=== PATIENT | female | born 1990 | race African-American/Black ===

== ENCOUNTER 2018-09-20 14:50 | Emergency (ER) | payer SELFPAY ==
[~2018-09-20] VITALS: Ht 160 cm; Wt 52.2 kg
[~2018-09-20 14:50] MED LIST: COLACE100 MG RECTAL; CYCLOBENZAPRINE10 MG ORAL; FLEET ENEMA EX230 ML RC; IBUPROFEN400 MG ORAL; IBUPROFEN600 MG ORAL; MAGNESIUM CITR100 MG PO; NKM; PENICILLIN V P500 MG ORAL; ROBAXIN500 MG PO; SUPPOSITORY1 EACH RC; TRAMADOL HCL50 MG ORAL; VICODIN 5-5001 EACH PO; ZOFRAN ODT4 MG ORAL; ZOFRAN4 MG ORAL
--- NOTE | 2018-09-20 15:00 | NUR ---
ED Nurse Note: pt walked in to ED with twin daughter due to vomiting and nausea. per pt, her baby started vomiting during night. she smell gas at home. pt felt sick this afternoon. denies SOB. AAO x4. respirations even and non-labored noted. will wait for the further order.
[2018-09-20 15:05] VITALS: BP 110/80
--- NOTE | 2018-09-20 16:17 | Emergency Room Report ---
History of Present Illness General Chief Complaint: Vomiting Source: Patient Present Illness HPI 28-year-old female presents to the emergency department complaining of multiple episodes of vomiting along with diarrhea. She denies pain. Patient denies blood in the vomit or stool she reports acute onset this morning she states that her to daughters have had similar symptoms as well which started yesterday. Patient also notes that yesterday the family was exposed to gas from the stove being left on for several hours at their home. Mom reports increased lethargy but states that it is due to being up all night taking care of the 2 daughters. Reports persistent nausea and decreased appetite. Denies increased tearing, rhinorrhea, excessive saliva or sweating. Denies rashes. Denies suspicion of and states that she had her tubes tied. She also states that she is currently on her menstrual cycle. Allergies: Coded Allergies: Cultivated Oat Pollen (Verified Allergy, Unknown, 12/29/14) Fruit Juice (Verified Allergy, Unknown, 12/29/14) Uncoded Allergies: FRUIT (Allergy, Unknown, 12/29/14) POLLEN (Allergy, Unknown, 12/29/14) Patient History Past Medical History: see triage record Past Surgical History: none Pertinent Family History: none Last Menstrual Period: 09/18/18 Now: No Reviewed Nursing Documentation: PMH: Agreed; PSxH: Agreed Nursing Documentation-PMH Past Medical History: No Stated History Review of Systems All Other Systems: negative except mentioned in HPI Physical Exam Vital Signs Date Time Temp Pulse Resp B/P (MAP) Pulse Ox O2 Delivery O2 Flow Rate FiO2 09/20/18 14:55 98.2 92 18 110/80 (90) 96 Room Air Sp02 EP Interpretation: reviewed, normal General Appearance: alert, GCS 15, non-toxic, mild distress - vomiting Head: normocephalic, atraumatic Eyes: bilateral eye normal inspection, bilateral eye PERRL ENT: hearing grossly normal, normal voice Neck: full range of motion Respiratory: chest non-tender, lungs clear, normal breath sounds, no wheezing, speaking full sentences Cardiovascular #1: regular rate, rhythm Gastrointestinal: normal bowel sounds, soft, non-distended, no guarding, tenderness - epigastric ttp Genitourinary: normal inspection, no CVA tenderness Musculoskeletal: gait/station normal, normal range of motion, non-tender Neurologic: alert, oriented x3, responsive, motor strength/tone normal, sensory intact, speech normal, grossly normal Psychiatric: judgement/insight normal Skin: normal color, no rash, warm/dry, well hydrated Lymphatic: no adenopathy Medical Decision Making PA Attestation Dr. Rodrigues is my supervising Physician whom patient management has been discussed with. Diagnostic Impression: Primary Impression: Nausea vomiting and diarrhea ER Course 28-year-old female presents to the emergency department complaining of multiple episodes of vomiting along with diarrhea. She denies pain. Patient denies blood in the vomit or stool she reports acute onset this morning she states that her to daughters have had similar symptoms as well which started yesterday. Patient also notes that yesterday the family was exposed to gas from the stove being left on for several hours at their home. Mom reports increased lethargy but states that it is due to being up all night taking care of the 2 daughters. Reports persistent nausea and decreased appetite. Denies increased tearing, rhinorrhea, excessive saliva or sweating. Denies rashes. Denies suspicion of and states that she had her tubes tied. She also states that she is currently on her menstrual cycle. Ddx considered but are not limited to GE, colitis, acute appy, SBO, Cyclical Vomiting secondary to THC, * , gas exposure. Vital signs: pt. is afebrile H&PE are most consistent with GE most likely viral in etiology, no evidence to suggest acute abdomen on physical exam. ORDERS: -ABG w. carboxyhemoglobin: WNL -Urine Hcg: pt. declines states her tubes are tied. ED INTERVENTIONS: -1000 NS iv hydration, -Zofran 4mg --Pt. reports complete resolution of her symptoms with ED interventions. states she feels much better and requests to have IV d/c prematurely and d/c to home. -I do not identify an emergent condition at this time. With current presentation , pt. is stable for close outpatient follow up and conservative treatment. D/ w pt. to return promptly to ED with worsening or new symptoms.- Pt. verbalizes' understanding and agreement with proposed treatment plan.proposed treatment plan. DISCHARGE: At this time pt. is stable for d/c to home. Will provide printed patient care instructions, and any necessary prescriptions. Care plan and follow up instructions have been discussed with the patient prior to discharge. Labs Test 09/20/18 16:20 Arterial Blood pH 7.408 (7.350-7.450) Arterial Blood Partial Pressure CO2 38.9 mmHg (35.0-45.0) Arterial Blood Partial Pressure O2 83.6 mmHg (75.0-100.0) Arterial Blood HCO3 24.0 mmol/L (22.0-26.0) Arterial Blood Oxygen Saturation 95.7 % (95-100) Arterial Blood Base Excess -0.5 (-2-2) [place] Test Positive Last Vital Signs Date Time Temp Pulse Resp B/P (MAP) Pulse Ox O2 Delivery O2 Flow Rate FiO2 09/20/18 15:05 98.2 92 18 110/80 96 Room Air Status: improved Disposition: HOME, SELF-CARE Condition: Stable Scripts Dicyclomine Hcl* (DICYCLOMINE HCL*) 10 Mg Capsule 10 MG ORAL TID for 2 Days, #6 CAP Prov: Sharri Espino 09/20/18 Ondansetron Odt* (ZOFRAN ODT*) 4 Mg Tab.rapdis 4 MG BC EVERY 8 HOURS PRN for Nausea & Vomiting, #10 TAB 0 Refills Prov: Sharri Espino 09/20/18 Patient Instructions: Nausea and Vomiting, Adult Additional Instructions: Take medications as directed. Follow up with a Primary Care Provider in 3-5 days, even if your symptoms have resolved. --Please review list of primary care clinics, if you do not already have a primary care provider Return sooner to ED if new symptoms occur, or current symptoms become worse. - Please note that this Emergency Department Report was dictated using [employer] project manager technology software, occasionally this can lead to erroneous entry secondary to interpretation by the dictation equipment. Sharri Espino Sep 20, 2018 16:17
[2018-09-20] MEDS ORDERED: DICYCLOMINE HCL10 MG ORAL (17:17)
[2018-09-20] MEDS ORDERED: ONDANSETRON ODT4 MG BC (17:17)
[2018-09-20 17:50] VITALS: BP 121/74
--- NOTE | 2018-09-20 17:50 | NUR ---
ER DISCHARGE NOTE: pt is ok to be discharge without urine test and fluid done per RAND Espino. Patient is cleared to be discharged per ERMD, pt is aox4, on room air, with stable vital signs. pt was given dc and prescription instructions, pt was able to verbalize understanding, pt id band and iv site removed without complications. pt is able to ambulate with steady gait. pt took all belongings.
== END 2018-09-20 17:50 | disposition home or self-care (01) ==
LOC: EMR 17:20
DX: R11.2 Nausea with vomiting, unspecified (principal); R19.7 Diarrhea, unspecified; Z91.018 Allergy to other foods
CPT/HCPCS: 36600; 82803; 96361; 96374; 99284; J2405

== ENCOUNTER 2019-02-27 12:37 | Emergency (ER) | payer MEDICAID ==
[~2019-02-27] VITALS: Ht 160 cm; Wt 52.6 kg
[~2019-02-27 12:37] MED LIST changes: +DICYCLOMINE HCL10 MG ORAL; +IBU800 MG PO; +ONDANSETRON ODT4 MG BC; +ROBAXIN-500MG ORAL
[2019-02-27 12:57] VITALS: BP 120/75
--- NOTE | 2019-02-27 13:05 | NUR ---
ED Nurse Note: [place]e and frequent urination for 1month, patient reports back and lower bilateral thigh pain as well. patient reports she had unprotected sex recently, also reports slight vaginal discharge as well. patient reports she is feeling very tired lately. patient provided with hospital gown.
--- NOTE | 2019-02-27 13:43 | NUR ---
ED Nurse Note: UA sent to lab
[2019-02-27 14:00] LABS: APPEARANCE,URINE SLIGHTLY CLOUDY; BILIRUBIN, URINE NEGATIVE (NEGATIVE); COLOR,URINE PALE YELLOW; GLUCOSE, URINE (UA) NEGATIVE (NEGATIVE); KETONES,URINE NEGATIVE (NEGATIVE); LEUKOCYTE ESTERASE ,URINE NEGATIVE (NEGATIVE); NITRITE,URINE NEGATIVE (NEGATIVE); PH,URINE 5 (4.5-8.0); PROTEIN,URINE NEGATIVE (NEGATIVE); UROBILINOGEN,URINE NORMAL MG/DL (0.0-1.0)
--- NOTE | 2019-02-27 14:35 | Emergency Room Report ---
History of Present Illness General Chief Complaint: Female Urogenital Problems Source: Patient Present Illness HPI 28 YO Female presents to the ED c/o 10 out of 10 severity urinary frequency with body aches she states progressive x1 month she also is reporting new onset vaginal discharge x5 days with malodor and low back pain. Patient denies recent antibiotic use she reports recent unprotected intercourse however she states she is not concerned for STIs. Denies pain with intercourse. Patient denies she denies nausea, vomiting, abdominal pain or tenderness, hematuria or dysuria. Patient denies constipation or diarrhea. Patient denies external vaginal lesions/rashes. Patient denies swollen tender lymph nodes or joint pains. Patient states she believes she may have a UTI otherwise she has a history of bacterial vaginosis regularly in the past. Allergies: Coded Allergies: Cultivated Oat Pollen (Verified Allergy, Unknown, 12/29/14) Fruit Juice (Verified Allergy, Unknown, 12/29/14) Uncoded Allergies: FRUIT (Allergy, Unknown, 12/29/14) POLLEN (Allergy, Unknown, 12/29/14) Patient History Past Medical History: see triage record Past Surgical History: none Pertinent Family History: none Last Menstrual Period: 11-10 Now: No Immunizations: UTD Reviewed Nursing Documentation: PMH: Agreed; PSxH: Agreed Nursing Documentation-PMH Past Medical History: No Stated History Review of Systems All Other Systems: negative except mentioned in HPI Physical Exam Vital Signs Date Time Temp Pulse Resp B/P (MAP) Pulse Ox O2 Delivery O2 Flow Rate FiO2 02/27/19 12:57 98.8 97 19 120/75 98 Room Air Medical Decision Making PA Attestation Dr. Rodrigues is my supervising Physician whom patient management has been discussed with. Diagnostic Impression: Primary Impression: Vaginitis Qualified Codes: N76.0 - Acute vaginitis Additional Impression: Urinary frequency ER Course 28 YO Female presents to the ED c/o 10 out of 10 severity urinary frequency with body aches she states progressive x1 month she also is reporting new onset vaginal discharge x5 days with malodor and low back pain. Patient denies recent antibiotic use she reports recent unprotected intercourse however she states she is not concerned for STIs. Denies pain with intercourse. Patient denies she denies nausea, vomiting, abdominal pain or tenderness, hematuria or dysuria. Patient denies constipation or diarrhea. Patient denies external vaginal lesions/rashes. Patient denies swollen tender lymph nodes or joint pains. Patient states she believes she may have a UTI otherwise she has a history of bacterial vaginosis regularly in the past. Ddx considered but are not limited to UTi , Pyelo, STI, Stone, Cystitis, vaginal laceration, vaginitis. Vital signs: are WNL, pt. is afebrile H& PE are most consistent with: Vaginitis and possible UTI ORDERS: - UA labs are attached-most indicative of contamination: presence of equal amounts of bacteria and squamous cells, no elevation in inflammatory markers, nitrite negative. ED INTERVENTIONS: -Pyridium PO DISCHARGE: At this time pt. is stable for d/c to home. Will provide printed patient care instructions, and any necessary prescriptions. Care plan and follow up instructions have been discussed with the patient prior to discharge. discussed with the patient prior to discharge. Labs Test 02/27/19 13:35 Urine Color Pale yellow Urine Appearance Slightly cloudy Urine pH 5 (4.5-8.0) Urine Specific [place] 1.015 (1.005-1.035) Urine Protein Negative (NEGATIVE) Urine Glucose (UA) Negative (NEGATIVE) Urine Ketones Negative (NEGATIVE) Urine Blood Negative (NEGATIVE) Urine Nitrite Negative (NEGATIVE) Urine Bilirubin Negative (NEGATIVE) Urine Urobilinogen Normal MG/DL (0.0-1.0) Urine Leukocyte Esterase Negative (NEGATIVE) Urine RBC 0 /HPF (0 - 2) Urine WBC 0 /HPF (0 - 2) Urine Squamous Epithelial Cells Few /LPF (NONE/OCC) Urine Bacteria Few /HPF (NONE) Last Vital Signs Date Time Temp Pulse Resp B/P (MAP) Pulse Ox O2 Delivery O2 Flow Rate FiO2 02/27/19 12:57 98.8 97 19 120/75 (90) 98 Room Air Disposition: HOME, SELF-CARE Condition: Stable Scripts Phenazopyridine Hcl* (PYRIDIUM*) 100 Mg Tablet 100 MG ORAL THREE TIMES A DAY, #9 TAB Prov: Sharri Espino 02/27/19 Fluconazole (FLUCONAZOLE) 100 Mg Tablet 100 MG ORAL DAILY, #3 TAB 0 Refills Prov: Sharri Espino 02/27/19 Metronidazole* (FLAGYL*) 500 Mg Tablet 500 MG ORAL BID for 7 Days, #14 TAB Prov: Sharri Espino 02/27/19 Referrals: NON PHYSICIAN (PCP) Patient Instructions: Vaginitis Additional Instructions: Take medications as directed. ! Do not drink alcohol while taking Flagyl/Metronidazole as this will cause a skin reaction. Follow up with a Primary Care Provider in 3-5 days, even if your symptoms have resolved. --Please review list of primary care clinics, if you do not already have a primary care provider Return sooner to ED if new symptoms occur, or current symptoms become worse. - Please note that this Emergency Department Report was dictated using FrienditePluspassenger booking clerk technology software, occasionally this can lead to erroneous entry secondary to interpretation by the dictation equipment. Sharri Espino Feb 27, 2019 14:35
[2019-02-27] MEDS ORDERED: Phenazopyridine 200mg tab ORAL ONE (14:45)
[2019-02-27] MEDS ORDERED: FLUCONAZOLE100 MG ORAL (14:45)
[2019-02-27] MEDS ORDERED: METRONIDAZOLE500 MG ORAL (14:45)
[2019-02-27] MEDS ORDERED: PHENAZOPYRIDIN100 MG ORAL (14:45)
[2019-02-27 14:50] VITALS: BP 120/75
--- NOTE | 2019-02-27 14:50 | NUR ---
ER DISCHARGE NOTE: Patient is cleared to be discharged per SOPHIA MCCORMACK , pt is aox4, on room air, with stable vital signs. pt was given dc and prescription instructions, pt was able to verbalize understanding, pt id band removed without complications. pt is able to ambulate with steady gait. pt took all belongings.
== END 2019-02-27 14:50 | disposition home or self-care (01) ==
LOC: EMR 13:40
DX: N76.0 Acute vaginitis (principal); R35.0 Frequency of micturition; Z91.018 Allergy to other foods
CPT/HCPCS: 81003; Z7502; 99283

== ENCOUNTER 2019-05-16 12:19 | Emergency (ER) | payer MEDICAID ==
[~2019-05-16] VITALS: Ht 160 cm; Wt 53.5 kg
[~2019-05-16 12:19] MED LIST changes: +FLUCONAZOLE100 MG ORAL; +METRONIDAZOLE500 MG ORAL; +PHENAZOPYRIDIN100 MG ORAL
[2019-05-16 12:53] VITALS: BP 107/71
--- NOTE | 2019-05-16 14:00 | NUR ---
ED Nurse Note:pt. came with c/o head injury at work ,CT was done, pain meds given
--- NOTE | 2019-05-16 14:11 | Diagnostic Imaging Report ---
Indication: Confusion and nausea. Status post head injury Technique: Contiguous 5 mm thick transaxial imaging of the head obtained in a Siemens Sensation [address] scanner. Soft tissue and bone windows generated. Automatic Exposure Control was utilized. Total Dose length Product (DLP): 1426.[address] Dose Index Volume (CTDIvol): 62.7 mGy Comparison: none Findings: The size and configuration of the cortical sulci, basal cisterns, and ventricles are within normal limits for age. There is no mass effect, midline shift, or edema identified. There is no evidence of acute hemorrhage or abnormal intra-axial or extra-axial fluid collections. The bones and soft tissues are unremarkable. Impression: No mass effect, edema or acute bleed. The CT scanner at [facility] is accredited by the [employer] [place] [employer] and the scans are performed using dose optimization techniques as appropriate to a performed exam including Automatic Exposure control.
--- NOTE | 2019-05-16 14:23 | Emergency Room Report ---
History of Present Illness General Chief Complaint: Head Injury Source: Patient Present Illness HPI 28 YO female presents to the ED c/o confusion, increased response times and increased fatigue/sleepiness with nausea and decrease in appetite x 2 days. S/ P alleged head injury. Pt. has forehead lac with [address] that is currently healing. Pt. reports car trunk door hit her head. Pt. denies LOC. She denies taking blood thinning medications. She denies vomiting. She reports having CARO's now that are 9/10 in severity with notable photophobia. She denies visual changes, loss of vision, loss of hearing or changes in her hearing. She denies tinnitus. She denies neck pain. She denies additional head traumas. She denies amnesia. or memory loss. Pt. reports she feels sluggish and " slow mentally". No aggravating or relieving factors at this time. She has taken Tylenol twice since onset of symptoms. She denies and reports that her tubes are tied. Allergies: Coded Allergies: Cultivated Oat Pollen (Verified Allergy, Unknown, 12/29/14) Fruit Juice (Verified Allergy, Unknown, 12/29/14) Uncoded Allergies: FRUIT (Allergy, Unknown, 12/29/14) POLLEN (Allergy, Unknown, 12/29/14) Patient History Past Medical History: see triage record Past Surgical History: none Pertinent Family History: none Last Menstrual Period: 04/25/19 Now: No Reviewed Nursing Documentation: PMH: Agreed; PSxH: Agreed Nursing Documentation-PMH Past Medical History: No Stated History Review of Systems All Other Systems: negative except mentioned in HPI Physical Exam Vital Signs Date Time Temp Pulse Resp B/P (MAP) Pulse Ox O2 Delivery O2 Flow Rate FiO2 05/16/19 12:28 98.1 75 16 107/71 (83) 99 Room Air Sp02 EP Interpretation: reviewed, normal General Appearance: no apparent distress, alert, GCS 15, non-toxic Head: normocephalic, atraumatic Eyes: bilateral eye normal inspection, bilateral eye PERRL, bilateral eye photophobia ENT: hearing grossly normal, normal voice Neck: full range of motion, no meningismus, no bony tend Respiratory: chest non-tender, lungs clear, normal breath sounds, speaking full sentences Cardiovascular #1: regular rate, rhythm Gastrointestinal: normal bowel sounds, non tender, soft Rectal: deferred Musculoskeletal: normal range of motion, gait/station normal, non-tender Neurologic: alert, motor strength/tone normal, oriented x3, sensory intact, responsive, speech normal, normal gait, grossly normal, no focal defects, other - Negative decrease in visual field on confrontation. No nystagmus. Normal [id number]. Psychiatric: judgement/insight normal Skin: wd healing/no infection noted - 1cm forehead laceration with [address] Medical Decision Making PA Attestation Dr. Hodges Is my supervising Physician whom patient management has been discussed with. Diagnostic Impression: Primary Impression: Post concussive syndrome ER Course 28 YO female presents to the ED c/o confusion, increased response times and increased fatigue/sleepiness with nausea and decrease in appetite x 2 days. S/ P alleged head injury. Pt. has forehead lac with [address] that is currently healing. Pt. reports car trunk door hit her head. Pt. denies LOC. She denies taking blood thinning medications. She denies vomiting. She reports having CARO's now that are 9/10 in severity with notable photophobia. She denies visual changes, loss of vision, loss of hearing or changes in her hearing. She denies tinnitus. She denies neck pain. She denies additional head traumas. She denies amnesia. or memory loss. Pt. reports she feels sluggish and " slow mentally". No aggravating or relieving factors at this time. She has taken Tylenol twice since onset of symptoms. She denies and reports that her tubes are tied. Ddx considered but are not limited to Fracture, dislocation, contusion, concussion Sprain/Strain/Spasm, hematoma Vital signs: are WNL, pt. is afebrile H&PE are most consistent with contusion, no evidence of focal neurological deficit, no loss of consciousness. ORDERS: -CT Head No Contrast: WNL -Urine Hcg: Negative ED INTERVENTIONS: - Pt. and responsible constitution party verbalize their understanding and agreement with proposed treatment plan with Neurology follow up as an outpatient. d/w pt. red flag symptoms to watch for which would indicate prompt return to the ED. I also d/w pt. importance of avoiding any additional head trauma until her symptoms are completely resolved. DISCHARGE: At this time pt. is stable for d/c to home. Will provide printed patient care instructions, and any necessary prescriptions. Care plan and follow up instructions have been discussed with the patient prior to discharge. Labs Test 05/16/19 13:00 Urine HCG, Qualitative Negative (NEGATIVE) CT/MRI/US Diagnostic Results CT/MRI/US Diagnostic Results : Imaging Test Ordered: CT Head No Contrast Impression " No mass-effect, edema or acute bleed". Per official radiology report- Please see report for specific details. Last Vital Signs Date Time Temp Pulse Resp B/P (MAP) Pulse Ox O2 Delivery O2 Flow Rate FiO2 05/16/19 12:53 98.1 16 107/71 99 Room Air 05/16/19 12:28 75 Status: improved Disposition: HOME, SELF-CARE Condition: Stable Scripts Acetaminophen* (TYLENOL EXTRA STRENGTH*) 500 Mg Tablet 500 MG ORAL Q6H, #20 TAB 0 Refills Prov: Sharri Espino 05/16/19 Referrals: [facility],REFERRING (PCP) Patient Instructions: Concussion, Adult, [id number] Additional Instructions: Take medications as directed. Follow up with a Primary Care Provider in 3-5 days For a referral to have NEUROLOGIST Evaluation, even if your symptoms have resolved. --Please review list of primary care clinics, if you do not already have a primary care provider Return sooner to ED if new symptoms occur, or current symptoms become worse. - Please note that this Emergency Department Report was dictated using [employer] molder technology software, occasionally this can lead to erroneous entry secondary to interpretation by the dictation equipment. Sharri Espino May 16, 2019 14:23
[2019-05-16 14:33] VITALS: BP 107/71
[2019-05-16] MEDS ORDERED: TYLENOL EXTRA500 MG ORAL (14:33)
== END 2019-05-16 15:06 | disposition home or self-care (01) ==
LOC: EMR 13:15
DX: R41.0 Disorientation, unspecified (principal); F07.81 Postconcussional syndrome; S01.81XD Laceration without foreign body of other part of head, subsequent encounter; W22.8XXD Striking against or struck by other objects, subsequent encounter; Z88.8 Allergy status to other drugs, medicaments and biological substances; Z91.09 Other allergy status, other than to drugs and biological substances
CPT/HCPCS: 70450; 81025; Z7502; 99284

== ENCOUNTER 2020-02-17 11:40 | Emergency (ER) | payer MEDICAID ==
[~2020-02-17] VITALS: Ht 160 cm; Wt 59.0 kg
[~2020-02-17 11:40] MED LIST changes: +TYLENOL EXTRA500 MG ORAL
[2020-02-17 11:45] VITALS: BP 122/69
[2020-02-17 12:05] LABS: APPEARANCE,URINE CLOUDY; BILIRUBIN, URINE NEGATIVE (NEGATIVE); COLOR,URINE PALE YELLOW; GLUCOSE, URINE (UA) NEGATIVE (NEGATIVE); KETONES,URINE NEGATIVE (NEGATIVE); LEUKOCYTE ESTERASE ,URINE 2+ (NEGATIVE); NITRITE,URINE NEGATIVE (NEGATIVE); PH,URINE 6.5 (4.5-8.0); PROTEIN,URINE 3+ (NEGATIVE); UROBILINOGEN,URINE NORMAL MG/DL (0.0-1.0)
--- NOTE | 2020-02-17 12:19 | Emergency Room Report ---
History of Present Illness General Chief Complaint: Female Urogenital Problems Source: Patient Present Illness HPI 29-year-old female with no signal past medical history here complaining of 5 days of left urination and dysuria. Reports this started after she was sexually active with her boyfriend. Denies any vaginal discharge or vaginal bleeding. Reports that the blood is only limited when she is urinating is blood-tinged. Last menstrual period was 2 weeks ago and regular. Denies . Denies fever and chills, diffuse abdominal pain, pelvic pain, nausea or vomiting. Has not taken medication for symptom relief other than 3 days of Cipro that was giv en to her in urgent care due to UTI. 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 Patient History Past Medical History: see triage record Past Surgical History: none Pertinent Family History: none Last Menstrual Period: 02/01/2020 Immunizations: UTD Reviewed Nursing Documentation: PMH: Agreed; PSxH: Agreed Nursing Documentation-PMH Past Medical History: No Stated History Review of Systems All Other Systems: negative except mentioned in HPI Physical Exam Vital Signs Date Time Temp Pulse Resp B/P (MAP) Pulse Ox O2 Delivery O2 Flow Rate FiO2 02/17/20 11:45 97.9 84 16 122/69 (86) 100 Room Air Sp02 EP Interpretation: reviewed, normal General Appearance: no apparent distress, alert, GCS 15, non-toxic Head: normocephalic, atraumatic Eyes: bilateral eye normal inspection, bilateral eye PERRL ENT: hearing grossly normal, normal pharynx, no angioedema, normal voice Neck: full range of motion, supple/symm/no masses Respiratory: chest non-tender, lungs clear, normal breath sounds, speaking full sentences Cardiovascular #1: regular rate, rhythm, no edema Gastrointestinal: normal bowel sounds, non tender, soft, non-distended, no guarding, no rebound Genitourinary: no CVA tenderness Musculoskeletal: back normal Neurologic: alert, motor strength/tone normal, oriented x3, sensory intact, responsive, speech normal Psychiatric: judgement/insight normal, memory normal, mood/affect normal, no suicidal/homicidal ideation Skin: no rash Lymphatic: no adenopathy Medical Decision Making PA Attestation All my diagnosis and treatment plans were reviewed ad discussed with my supervising physician Dr. Shipman Diagnostic Impression: Primary Impression: UTI (urinary tract infection) ER Course 29-year-old female with no signal past medical history here complaining of 5 days of left urination and dysuria. Reports this started after she was sexually active with her boyfriend. Denies any vaginal discharge or vaginal bleeding. Reports that the blood is only limited when she is urinating is blood-tinged. Last menstrual period was 2 weeks ago and regular. Denies . Denies fever and chills, diffuse abdominal pain, pelvic pain, nausea or vomiting. Has not taken medication for symptom relief other than 3 days of Cipro that was given to her in urgent care due to UTI. Ddx considered but are not limited to: UTI, pyelonephritis, urinary incontinence, prolapsed bladder, bleeding during , Vital signs: are WNL, pt. is afebrile H&PE are most consistent with: UTI ORDERS: UA, urine cx, urine , Keflex, Pyridium ED INTERVENTIONS: None required at this time. DISCHARGE: At this time pt. is stable for d/c to home. Will provide printed patient care instructions, and any necessary prescriptions. Care plan and follow up instructions have been discussed with the patient prior to discharge. Advis ed patient to follow-up primary care provider directed, gave a list of clinics if the symptoms continue, patient deferred treatment for sexually transmitted diseases, worsening symptoms return to the emergency room Last Vital Signs Date Time Temp Pulse Resp B/P (MAP) Pulse Ox O2 Delivery O2 Flow Rate FiO2 02/17/20 11:45 97.9 84 16 122/69 (86) 100 Room Air Disposition: HOME, SELF-CARE Condition: Stable Scripts Phenazopyridine Hcl* (PYRIDIUM*) 200 Mg Tablet 200 MG ORAL THREE TIMES A DAY for 2 Days, #6 TAB 0 Refills Prov: Damari Ureña 02/17/20 Cephalexin* (KEFLEX*) 500 Mg Capsule 500 MG ORAL EVERY 12 HOURS for 7 Days, #14 CAP 0 Refills Prov: Sahelimoghavami,Nahal PA 02/17/20 Patient Instructions: Urinary Tract Infection Additional Instructions: Take medication as directed, follow-up with your primary care provider, worsening symptoms return to emergency Damari Ureña Feb 17, 2020 12:19
[2020-02-17] MEDS ORDERED: PHENAZOPYRIDIN200 MG ORAL (12:20)
[2020-02-17] MEDS ORDERED: CEPHALEXIN500 MG ORAL (12:20)
== END 2020-02-17 12:25 | disposition home or self-care (01) ==
LOC: EMR 12:15
DX: N39.0 Urinary tract infection, site not specified (principal)
CPT/HCPCS: 81003; 81025; 87086; Z7502; 99282